=== PATIENT | male | born 1945 | race Hispanic/Latino ===

== ENCOUNTER 2018-08-21 11:30 | Emergency (ER) | payer OTHER ==
[~2018-08-21 11:30] MED LIST: CHOL500050 PO; LISI40TA4 PO; METF-446 PO; SIMV20TA6 PO; TAMS-1 PO
== END 2018-08-21 12:56 | disposition home or self-care (01) ==
LOC: EDH 11:30
DX: T83.038A Leakage of other urinary catheter, initial encounter (principal); N32.89 Other specified disorders of bladder; E11.9 Type 2 diabetes mellitus without complications; E78.5 Hyperlipidemia, unspecified; Z98.890 Other specified postprocedural states; Z88.8 Allergy status to other drugs, medicaments and biological substances

== ENCOUNTER 2019-12-08 10:05 | Emergency (ER) | payer OTHER ==
[2019-12-08] MEDS ORDERED: ONDANSETRON HCL 4 MG/2 ML VIAL ONE (12:36)
[2019-12-08] MEDS ORDERED: MORPHINE SULFATE 4 MG/1ML SYG ONE (12:36)
== END 2019-12-08 15:12 | disposition home or self-care (01) ==
LOC: EDH 10:05
DX: K59.00 Constipation, unspecified (principal); N32.9 Bladder disorder, unspecified; E11.9 Type 2 diabetes mellitus without complications; I10 Essential (primary) hypertension; E78.5 Hyperlipidemia, unspecified; Z90.49 Acquired absence of other specified parts of digestive tract; Z72.0 Tobacco use; Z88.8 Allergy status to other drugs, medicaments and biological substances
CPT/HCPCS: 36415; 74176; 80053; 82550; 83690; 84484; 85025; 93005; 96374; 96375; 99285; J2270; J2405

== ENCOUNTER → 2025-03-08 | Outpatient (CLI) | payer OTHER ==
[~2025-03-08] MED LIST changes: +AMIO200T73 PO; +CARV6.25 PO; +CLOP75TA32 PO; +DARI15TA16 PO; +IRON150C5 PO; +LISI20TA24 PO; -LISI40TA4 PO; +MACR100 PO; +NYST15OI4 TP; +RIVA10TA PO; +SIMV-43 PO; -SIMV20TA6 PO; -TAMS-1 PO; +TAMS-55 PO; +TORS10TA18 PO
--- NOTE | 2025-03-09 00:05 | HMCIMG ---
EXAMINATION: ULTRASOUND OF THE RETROPERITONEUM. CLINICAL HISTORY: Benign lipoma of kidney. COMPARISON: CT abdomen and pelvis without contrast dated 02/21/2025. TECHNIQUE: Real-time grayscale ultrasound images of the kidneys. FINDINGS: The kidneys are normal in caliber, the right kidney measures 9.2 x 4.9 x 4.7 cm and the left kidney measures 8.1 x 4.8 x 4.9 cm in its craniocaudal, AP, and transverse dimensions respectively. There is normal renal cortical thickness, and cortical echogenicity. There is no renal calculus or hydronephrosis. There is a hyperechoic lesion that measures 1.1 x 0.9 x 1.0 cm in the left renal mid pole cortex. The urinary bladder is partially distended with normal wall thickness (0.55 cm). There are no calculi in the urinary bladder. IMPRESSION: Left renal angiomyolipoma. /[place]
== END | disposition home or self-care (01) ==
LOC: RAH 12:45
PROVIDERS: ATTEND Internal Medicine
DX: D17.71 Benign lipomatous neoplasm of kidney (principal); N32.89 Other specified disorders of bladder
CPT/HCPCS: 76770